=== PATIENT | female | born 1975 | race Caucasian/White ===

== ENCOUNTER → 2020-02-11 | Outpatient (CLI) | payer OTHER ==
[2020-02-11 18:11] LABS: RED CELL DISTRIBUTION WIDTH 16.3 % (11.5-14.5)
== END | disposition home or self-care (01) ==
LOC: LAB 17:43
PROVIDERS: ATTEND Obstetrics & Gynecology
DX: N93.9 Abnormal uterine and vaginal bleeding, unspecified (principal)
CPT/HCPCS: 36415; 84439; 84443; 85027

== ENCOUNTER → 2020-02-14 | Outpatient (CLI) | payer OTHER ==
--- NOTE | 2020-02-14 12:56 | DIREP ---
PROCEDURE:US PELVIC FOLLOWED BY TRANSVAGINAL COMPARISON:None. INDICATIONS:N93.9 ABNORMAL UTERINE AND VAGINAL BLEEDING TECHNIQUE:Pelvic ultrasound using transabdominal technique. Endovaginal images were also obtained for better assessment of the uterus and adnexa. FINDINGS: LMP: 01/19/2020 UTERUS:The uterus is retroverted, measuring approximately 9.2 x 5.5 x 8.0 cm. No discrete fibroids are identified. Cervical nabothian cysts noted. ENDOMETRIUM:The endometrial complex is mildly thickened to approximately 2.1 cm with mild heterogeneity. RIGHT OVARY:The right ovary measures approximately 4.5 x 3.1 x 4.0 cm and contains a 3.4 x 2.5 x 3.1 cm simple appearing cyst. Spectral color Doppler flow is demonstrated within the surrounding ovarian parenchyma. LEFT OVARY:The left ovary measures approximately 4.4 x 3.9 x 2.4 cm and contains a 2.5 x 2.5 x 1.2 cm simple appearing cyst or dominant follicle. Spectral color Doppler flow is demonstrated within the surrounding ovarian parenchyma. CUL-DE-SAC:No significant free fluid within the pelvic cul de sac. CONCLUSION: 1. No discrete uterine fibroids. 2. Mildly thickened and heterogenous endometrial complex, measuring up to approximately 2.1 cm. At a minimum suggest follow-up ultrasound in 3-4 menstrual cycles (months) to assess resolution. 3. Small simple appearing right ovarian cyst with additional simple cyst or dominant follicle within the left ovary. Dictated by: CAMERON Physician on 02/14/2020 at 11:31 AM bs
== END | disposition home or self-care (01) ==
LOC: RAD 08:41
PROVIDERS: ATTEND Obstetrics & Gynecology
DX: N83.291 Other ovarian cyst, right side (principal); N83.292 Other ovarian cyst, left side; R93.89 Abnormal findings on diagnostic imaging of other specified body structures
CPT/HCPCS: 76830; 76856